=== PATIENT | male | born 1980 | race Caucasian/White ===

== ENCOUNTER 2016-10-17 20:37 | Emergency (ER) | payer SELFPAY ==
[~2016-10-17] VITALS: Ht 177.8 cm; Wt 81.6 kg
[~2016-10-17 20:37] MED LIST: CIPRO PO; DOXYCYCLINE HY100 M1 PO; NO MEDICATIONS; PHENERGAN PO; VICODIN 5/1 TAB 5/50 PO
== END 2016-10-17 22:10 | disposition home or self-care (01) ==
LOC: CED 20:37
DX: S50.12XA Contusion of left forearm, initial encounter (principal); S50.11XA Contusion of right forearm, initial encounter; F15.10 Other stimulant abuse, uncomplicated; F17.200 Nicotine dependence, unspecified, uncomplicated; X58.XXXA Exposure to other specified factors, initial encounter
CPT/HCPCS: 99282

== ENCOUNTER 2016-12-18 16:35 | Inpatient (IN) | payer OTHER ==
[~2016-12-18] VITALS: Ht 175.3 cm; Wt 82.1 kg
--- NOTE | ~2016-12-18 | DS ---
Unit #: [id number] #: [id number] Patient: CHAU ALBERT JR [id number] [facility] [address] [place] [address] [id number] I MR#: [id number] NAME: CHAU ALBERT JR ROOM: P175 Age: 36 Sex: M Admission Date: 12/18/2016 : 1980 Discharge Date: 12/22/2016 Attending Physician: Juan Ma M.D. Primary Care Physician: Primary Care Physician No DISCHARGE SUMMARY IDENTIFYING DATA Mr. Albert is a 36-year-old white male, who is a resident of [place], [place], and is known to us from previous encounter and was self-referred to the hospital. DISCHARGE DIAGNOSES Psychiatric: Major depressive disorder, recurrent, moderate, without psychotic features and methamphetamine dependence, moderate. Medical: None. Stressors: Moderate psychosocial stressors. HISTORY OF PRESENT ILLNESS Please see initial psychiatric evaluation for details. PAST PSYCHIATRIC HISTORY Please see initial psychiatric evaluation for details. PAST MEDICAL HISTORY Please see initial psychiatric evaluation for details. HOSPITAL COURSE The patient [facility] and was oriented to the hospital environment. Routine p.r.n. medications were initiated, and he was started on Wellbutrin and Seroquel to help with depression and anxiety and was closely monitored. He was taking the medications regularly and was tolerating them fairly well and was able to show a decent and therapeutic response and expressed the desire to be able to go to a long-term rehab level of care and Remote Sensing Scientist were able to get him accepted at [facility]. Followed by which, it was decided that he will be discharged to that facility and will continue treatment on an outpatient basis. DISCHARGE MEDICATIONS Wellbutrin XL 150 mg in the morning for depression and Seroquel 100 mg at bedtime for depression. DISCHARGE CONDITION Stable. PROGNOSIS Fair. Dictated by... Unit #: [id number] #: [id number] Patient: CHAU ALBERT JR Juan Ma M.D. IAA/modl TD: 12/22/2016 12:55 JOB #: [id number] DISCHARGE SUMMARY Page 1 of 1 X Juan Ma MD DISCHARGE SUMMARY
--- NOTE | ~2016-12-18 | PN ---
Unit #: [id number] #: [id number] Patient: CHAU ALBERT JR [id number] [facility] [address] [place] [address] [id number] MR#: [id number] NAME: CHAU ALBERT JR ROOM: P175 Age: 36 Sex: M Admission Date: 12/18/2016 : 1980 Attending Physician: Juan Ma M.D. Admitting Physician: Juan Ma M.D. Primary Care Physician: Primary Care Physician Cierra OSORIO NOTES DATE December 21, 2016 DISCUSSION Mr. Albert is a 36-year-old white male, who was seen today and chart was reviewed and the case was discussed with the staff. He has been anxious, withdrawn, and rather seclusive to himself. Meanwhile, he has been cooperative with the treatment recommendations and reports persistent depressive symptoms and feelings of hopelessness. He has been taking medications and tolerating them fairly well with no reported side effects. MENTAL STATUS EXAMINATION Young white male, who was casually dressed with fair personal hygiene and appears to be in no acute distress or discomfort. He was awake and alert on interaction with intact orientation. His mood is anxious with a congruent affect. He denies any suicidal or homicidal ideations. His insight and judgment remain slightly impaired. TREATMENT PLAN 1. We will continue him on his current medications and treatment protocol, and will monitor his response to the medications, and make further adjustments as needed. 2. We will continue to followup. Dictated by... Tatiana Rivera/anna TD: 12/22/2016 06:49 JOB #: [id number] Unit #: [id number] #: [id number] Patient: CHAU ALBERT JR [facility] PROGRESS NOTES Page 1 of 1 X Juan Ma MD PROGRESS NOTE
--- NOTE | ~2016-12-18 | HP ---
Unit #: [id number] #: [id number] Patient: JOHNNY ALBERT JR [id number] [place] [address] [id number] I MR#: [id number] NAME: JOHNNY ALBERT JR ROOM: P174 Age: 36 Sex: M Admission Date: 12/18/2016 : 1980 Attending Physician: Juan Ma M.D. Admitting Physician: Juan Ma M.D. Primary Care Physician: Primary Care Physician No HISTORY AND PHYSICAL HISTORY OF PRESENT ILLNESS Johnny is a 36 year old, [facility]. PAST MEDICAL HISTORY Long history of illicit substance abuse, to include methamphetamine. PAST SURGICAL HISTORY Nothing reported. ALLERGIES No known drug allergies. SOCIAL HISTORY He smokes one pack per day, he drinks alcohol rarely, admits to history of illicit substance abuse to include methamphetamine. FAMILY HISTORY Medically noncontributory. REVIEW OF SYSTEMS CONSTITUTIONAL: No fever or chills. HEENT: Denies any sore throat, ear pain or runny nose. CARDIOVASCULAR: Denies chest pain, irregular heart rhythm or palpitations. CHEST: Denies shortness of breath or cough. No hemoptysis. GASTROINTESTINAL: Denies nausea, vomiting, diarrhea or chronic constipation. ENDOCRINE: Denies history of increased thirst or urination. No recent significant weight loss or gain. GENITOURINARY: Denies dysuria, frequency, or hematuria. SKIN: Denies any rashes. HEMATOLOGIC: Denies history of increased bleeding or bruising. MUSCULOSKELETAL: Denies any hot, swollen joints. No generalized muscle pain. NEUROLOGIC: Denies problems with vision or speech. No frequent, severe headaches. No numbness, tingling or weakness in any extremities. Denies loss of bladder or bowel control. CURRENT MEDICATIONS 1. Wellbutrin XL 150 mg daily 2. Desyrel p.r.n. 3. Milk of magnesia p.r.n. 4. Maalox p.r.n. 5. Tylenol p.r.n. Unit #: [id number] #: [id number] Patient: JOHNNY ALBERT JR 6. Nicotine patch 14 mg daily PHYSICAL EXAMINATION GENERAL: Alert, well-nourished, no apparent distress. VITAL SIGNS: Blood pressure 124/72, heart rate 76, respirations 16, temperature 98.6. WEIGHT: 181 pounds. HEIGHT: 5 feet 9 inches. SKIN: Warm and dry without rash or lesion. HEENT: Normocephalic. TMs not viewed. Oral and nasal passages clear. Conjunctivae clear. PERRLA. EOMs intact. NECK: Supple without lymphadenopathy or thyromegaly. HEART: Regular rate and rhythm without murmur. LUNGS: Clear. ABDOMEN: Soft, nontender. : Not done. EXTREMITIES: No evidence of cyanosis, clubbing or edema. Moves all without focal deficit. NEUROLOGICAL: Grossly within normal limits. Cranial Nerves: II: Visual santana are intact. III, IV AND : Extraocular movements are intact. Pupils are equal, round and reactive to light. V: Facial sensation is grossly normal. VII: Facial movements and expression are normal. VIII: Auditory acuity grossly intact. IX, X: Uvula is midline. Phonation is normal. XI: Patient shrugs shoulders and turns head normally. XII: Tongue protrudes in the midline. Sensory and Motor Function: Sensory and motor sensation is grossly normal. Motor: moves all extremities well. Coordination: Gait is normal. Deep Tendon Reflexes: Intact. IMPRESSION Psychiatric admission. RECOMMENDATIONS Psychiatric, per psychiatrist. MEDICAL I see no contraindications to participating in facility's activities. MEDICAL PROGNOSIS Good. MEDICAL CONDITION Stable. Dictated by... Chelsea Galvan P.A.-C. for Tatiana Gipson/anna TD: 12/20/2016 06:41 JOB #: [id number] Unit #: [id number] #: [id number] Patient: BETYJOHNNY Gilberto MARSHALL HISTORY AND PHYSICAL Page 1 of 1 X Chelsea Galvan X HISTORY AND PHYSICAL
--- NOTE | ~2016-12-18 | PN ---
Unit #: [id number] #: [id number] Patient: CHAU ALBERT JR [id number] [facility] [address] [place] [address] [id number] I MR#: [id number] NAME: CHAU ALBERT JR ROOM: P174 Age: 36 Sex: M Admission Date: 12/18/2016 : 1980 Attending Physician: Juan aM M.D. Admitting Physician: Juan Ma M.D. Primary Care Physician: Primary Care Physician Cierra SAMANIEGO PROGRESS NOTES DATE OF SERVICE 12/20/2016 DISCUSSION Mr. Albert is a 36-year-old white male who was seen today. Chart was reviewed and case was discussed with the staff. He has been anxious, withdrawn, and rather seclusive to himself. Meanwhile, he has been cooperative with treatment recommendations and has been taking the medications and tolerating them fairly well. He reports (1) __ disturbance, anxiety, and muscles aches and pains and still having some persistent detox symptoms. MENTAL STATUS EXAMINATION Young white male who is casually dressed with fair personal hygiene, appears to be in no acute distress or discomfort. The patient was awake and alert on interaction with intact orientation. His mood is anxious and depressed with congruent affect. Speech is slow and goal-directed. He denies any suicidal or homicidal ideation. His insight and judgment remain slightly impaired. TREATMENT PLAN 1. We will continue him on his current medications and treatment protocol. We will monitor his response to the medications and make further adjustments as needed. 2. We will continue to follow up. Dictated by... Tatiana Rivera/mateog TD: 12/21/2016 13:51 JOB #: [id number] Unit #: [id number] #: [id number] Patient: CHAU ALBERT JR [facility] PROGRESS NOTES Page 1 of 1 X Juan Ma MD PROGRESS NOTE
--- NOTE | ~2016-12-18 | PA ---
Unit #: [id number] #: [id number] Patient: CHAU ALBERT JR [id number] [facility] [address] [place] [address] [id number] I MR#: [id number] NAME: CHAU ALBERT JR ROOM: P174 Age: 36 Sex: M Admission Date: 12/18/2016 : 1980 Date of Assessment: Attending Physician: Juan Ma M.D. Admitting Physician: Juan Ma M.D. Primary Care Physician: Primary Care Physician No PSYCHIATRIC ASSESSMENT DATE OF SERVICE 12/19/2016. IDENTIFYING DATA Mr. Albert is a 36-year-old single white male, who is a resident of [place], [place], and is known to us from previous encounter, and was self-referred to the hospital. CHIEF COMPLAINT "Because I've been using meth." HISTORY OF PRESENT ILLNESS Mr. Albert is a 36-year-old white male with dual diagnosis of substance abuse and mood disorder, who came to the hospital stating that he has been using meth and that he is suicidal and that he plan to overdose on drugs and that he has attempted overdose several times on meth, but has been unsuccessful and that his and children have left him because of the drug use and reports that he recent lost of job because of the drugs and reports increasing depression, anxiety, irritability, restlessness, feelings of hopelessness and helplessness, and suicidal ideations and as such, recommendation for inpatient level of care for safety and stabilization was made and the patient was stepped up to the inpatient unit. SUBSTANCE ABUSE HISTORY The patient reports history of experimentation with alcohol and opioids, but methamphetamine has been his drug of choice as reports that he has been using 2 g a day on every day basis. PAST PSYCHIATRIC HISTORY The patient has not had any prior inpatient or outpatient psychiatric treatment. Review of the medical records indicate currently he is not active in treatment program, is not seeing a psychiatrist, and is not taking any psychotropic medications. PAST MEDICAL HISTORY No acute or chronic medical illnesses. ALLERGIES No known medication allergies. CURRENT MEDICATIONS None. Unit #: [id number] #: [id number] Patient: CHAU ALBERT JR PERSONAL AND SOCIAL HISTORY A 36-year-old white male, who reports that he is single, unemployed, and lives alone and has poor social support system. MENTAL STATUS EXAMINATION Young white male who was casually dressed with fair personal hygiene, appears to be in no acute distress or discomfort. He was awake and alert on interaction with intact orientation to time, place, and person. His mood was anxious and depressed with a congruent affect. His speech was slow and goal directed. His thought processes were disorganized with some looseness of associations and suicidal ideations. His insight and judgment remain significantly impaired. DIAGNOSTIC IMPRESSION Psychiatric: Major depressive disorder, recurrent, moderate, without psychotic features; methamphetamine dependence, moderate. Medical: None. Stressors: Moderate psychosocial stressors. TREATMENT PLAN 1. The patient has presented with history of substance abuse and mood disorder, and has been decompensating and will need inpatient hospitalization for detoxification, safety, and stabilization. We will start him back on his home medications. We will adjust the medications and monitor response. 2. Supportive therapy was provided to the patient. 3. Safe, structured, and nourishing environment will be provided. ESTIMATED LENGTH OF STAY 4 to 5 days. ABILITY TO HELP SELF Limited. WILLINGNESS TO HELP SELF The patient appears to be willing to help self. STRENGTHS 1. Communicative. 2. Cooperative. PROBLEMS 1. Chronic dysphoric symptoms. 2. Chronic chemical dependency. 3. Poor social support system. DISCHARGE CRITERIA This will be contingent upon the patient's ability to go through detox without having any significant withdrawal symptoms as well as his ability to stay safe to himself, particularly after discharge from the hospital. Dictated by... Tatiana Rivera/barbie Unit #: [id number] #: [id number] Patient: NANCI ALBERTAsuncion Macias JR TD: 12/19/2016 06:34 JOB #: [id number] PSYCHIATRIC ASSESSMENT Page 1 of 1 X Juan Ma MD X PSYCHIATRIC ASSESSMENT
[2016-12-19 09:36] LABS: BASOPHIL% 0.5 % (0-2.5); EOSINOPHIL# 0.2 X10e3 (0-0.7); EOSINOPHIL% 2.7 % (0.0-7.0); HEMATOCRIT 44.2 % (38.0-50.0); HEMOGLOBIN 15.2 gm/dL (13.0-16.0); LYMPHOCYTE# 1.6 X10e3 (1.0-3.5); LYMPHOCYTE% 24.3 % (17.0-45.0); MEAN CELL VOLUME 90.2 FL (83-96); MEAN CORPUSCULAR HGB CONC 34.4 g/dL (30-36); MONOCYTE# 0.7 X10e3 (0-1.0); MONOCYTE% 10.7 % (3.0-12.0); NEUTROPHIL# 4.1 X10e3 (1.5-7.1); NEUTROPHIL% 61.8 % (40-75); PLATELET COUNT 227 X10e3 (140-420); RED CELL DISTRIBUTION WIDTH 12.8 % (11.0-15.5); WHITE BLOOD COUNT 6.6 X10e3 (4.0-10.5)
[2016-12-19 09:42] LABS: DIFF IND NO
[2016-12-19 10:49] LABS: ALBUMIN SERUM 3.5 g/dL (3.5-5.0); BILIRUBIN,TOTAL 0.3 mg/dL (0.2-2.0); BUN/CREATININE RATIO 21.25; CALCIUM SERUM 8.8 mg/dL (8.4-10.2); CREATININE SERUM 0.8 mg/dL (0.6-1.4); GLOM FILT RATE Estimated 113.4 mL/min (>60); PROTEIN TOTAL SERUM 6.4 g/dL (6.0-8.3)
[2016-12-19 12:36] LABS: URINE APPEARANCE CLEAR; URINE BILIRUBIN NEG (NEG); URINE BLOOD NEG (NEG); URINE COLOR YELLOW; URINE GLUCOSE NEG (NEG); URINE KETONE NEG (NEG); URINE LEUKOCYTE ESTERASE NEG (NEG); URINE NITRATE NEG (NEG); URINE PH 6.5 (5-8); URINE PROTEIN NEG (NEG); URINE SPECIFIC GRAVITY 1.024 (1.003-1.035); URINE UROBILINOGEN 0.2 MG/DL (NEG)
[2016-12-19 14:08] LABS: AMPHETAMINE POS (NEG); BARBITURATES NEG (NEG); BENZODIAZEPINES NEG (NEG); COCAINE NEG (NEG); MARIJUANA NEG (NEG); OPIATES NEG (NEG); TRICYCLIC ANTIDEPRESSANTS NEG (NEG); U METHADONE NEG (NEG)
== END 2016-12-22 11:20 | DRG 885 ==
LOC: P1E 20:21
PROVIDERS: Psychiatry & Neurology Psychiatry
PROC: HZ2ZZZZ Detoxification Services for Substance Abuse Treatment (ICD-10-PCS; principal; 2016-12-18)
DX: F33.1 Major depressive disorder, recurrent, moderate (principal); F15.20 Other stimulant dependence, uncomplicated; R45.851 Suicidal ideations; F17.200 Nicotine dependence, unspecified, uncomplicated
CPT/HCPCS: 80053; 80307; 81003; 85025